=== PATIENT | female | born 1995 | race Caucasian/White ===

== ENCOUNTER 2016-12-25 19:45 | Emergency (ER) | payer OTHER ==
[~2016-12-25] VITALS: Ht 167.6 cm; Wt 124.0 kg
[~2016-12-25 19:45] MED LIST: BACTDS PO; CEPH-443 PO; HYDR-906 PO
[2016-12-25 20:35] VITALS: Ht 167.6 cm; Wt 124.0 kg
--- NOTE | 2016-12-25 22:13 | ERA ---
ER Documentation Chief Complaint Date/Time DATE: 12/25/16 TIME: 22:13 Chief Complaint upper abd pain x 2 days HPI The patient is a 21-year-old female, presenting to the ER because of epigastric abdominal pain intermittently for the last 2 days, worse today after she lives heavy object, 07/01. She has similar symptoms prior to cholecystectomy. She denies fever, chills, neck pain, chest pain, dyspnea, diaphoresis. She denies nausea, vomiting, dysuria, diarrhea, constipation. She does not smoke nor drink Past medical history: None Past surgical history: Cholecystectomy, appendectomy ROS All systems reviewed and are negative except as per history of present illness. Medications Home Meds Active Scripts Pantoprazole* (Protonix*) 40 Mg Tablet.dr, 40 MG PO DAILY, #20 TAB Prov:LISANDRO BOWLING MD 12/26/16 Hydrocodone/Acetaminophen ([place] 5-325 Tablet) 1 Each Tablet, 1 EACH PO Q6, #14 TAB Prov:ED FRANCIS DO 09/17/16 Cephalexin* (Keflex*) 500 Mg Capsule, 500 MG PO QID for 10 Days, CAP Prov:ED FRANCIS DO 09/17/16 Sulfamethoxazole-Trimethoprim* (Bactrim* DS) 800-160 Mg Tab, 1 TAB PO BID for 10 Days, TAB Prov:ED FRANCIS DO 09/17/16 Allergies Allergies: Coded Allergies: aspirin (Verified Allergy, Unknown, 12/25/16) PMhx/Soc Hx Alcohol Use: No Hx Substance Use: No Hx Tobacco Use: No Physical Exam Vitals Vital Signs Date Time Temp Pulse Resp B/P Pulse Ox O2 Delivery O2 Flow Rate FiO2 12/25/16 20:35 97.7 74 20 129/74 97 Physical Exam Const: No acute distress. Head: Atraumatic. Eyes: Normal Conjunctiva. ENT: Normal External Ears, Nose and Mouth. Neck: Full range of motion. No meningismus. Resp: Clear to auscultation bilaterally. Cardio: Regular rate and rhythm, no murmurs. Abd: Soft, non distended, normal bowel sounds, moderate epigastric tenderness. No right lower quadrant, right upper quadrant, rigidity, rebound, CVA tenderness Skin: No petechiae or rashes. Back: No midline or flank tenderness. Ext: No cyanosis, or edema. Neur: Awake and alert. No focal deficit Psych: Normal Mood and Affect. Result Diagram: 12/25/164 12/25/16 2304 Results 24 hrs Laboratory Tests Test 12/25/16 23:04 12/25/16 23:14 Alanine Aminotransferase (ALT/SGPT) 30IU/L Albumin 4.1g/dl Albumin/Globulin Ratio 1.24 Alkaline Phosphatase 95IU/L Anion Gap 16 Aspartate Amino Transf (AST/SGOT) 18IU/L Basophils # 0.110^3/ul Basophils % 0.3% Blood Morphology Comment Blood Urea Nitrogen 11mg/dl Calcium Level 9.4mg/dl Carbon Dioxide Level 31mmol/L Chloride Level 99mmol/L Creatinine 0.79mg/dl Direct Bilirubin 0.00mg/dl Eosinophils # 0.510^3/ul Eosinophils % 2.4% Globulin 3.30g/dl Glucose Level 106mg/dl Hematocrit 38.7% Hemoglobin 12.3g/dl Indirect Bilirubin 0.0mg/dl Lipase 89U/L Lymphocytes # 2.210^3/ul Lymphocytes % 10.6% Mean Corpuscular Hemoglobin 24.4pg Mean Corpuscular Hemoglobin Concent 31.9g/dl Mean Corpuscular Volume 76.5fl Mean Platelet Volume 9.3fl Monocytes # 1.010^3/ul Monocytes % 4.6% Neutrophils # 17.410^3/ul Neutrophils % 82.1% Nucleated Red Blood Cells # 0.010^3/ul Nucleated Red Blood Cells % 0.0/100WBC Platelet Count 10949^3/UL Potassium Level 4.0mmol/L Red Blood Count 5.0610^6/ul Red Cell Distribution Width 16.3% Sodium Level 142mmol/L Total Bilirubin 0.0mg/dl Total Protein 7.4g/dl White Blood Count 21.210^3/ul Bedside Urine Blood Negative Bedside Urine Glucose (UA) Negative Bedside Urine Ketones (LAB) Negative Bedside Urine Leukocyte Esterase (L Negative Bedside Urine Nitrite (LAB) Negative Bedside Urine Protein (LAB) Negative Bedside Urine pH (LAB) 6.5 Current Medications Medications (Trade) Dose Ordered Sig/Emely Route PRN Reason Start Time Stop Time Status Last Admin Dose Admin Sodium Chloride (NS) 1,000 ml @ 1,000 mls/hr Q1H STAT IV 12/25/16 22:19 12/25/16 23:18 DC 12/25/16 23:23 Morphine Sulfate (morphine) 4 mg ONCE STAT IV 12/25/16 22:19 12/25/16 22:21 DC 12/25/16 23:22 Ondansetron HCl (Zofran Inj) 4 mg ONCE STAT IV 12/25/16 22:19 12/25/16 22:21 DC 12/25/16 23:22 Pantoprazole (Protonix Iv) 40 mg ONCE ONCE IV 12/25/16 22:30 12/25/16 22:31 DC 12/25/16 23:22 Morphine Sulfate (morphine) 2 mg ONCE ONCE IV 12/26/16 00:30 12/26/16 00:31 DC 12/26/16 01:46 Procedures/[place] [id number] Radiology Main Line: [phone] DIAGNOSTIC IMAGING REPORT Patient: BERENICE GARCIA : 1995 Age: 21 Sex: F MR #: [id number] DOS: 12/26/16 0012 Ordering MD: LISANDRO BOWLING MD Location: [facility] Room/Bed: PROCEDURE: CT Abdomen and pelvis without contrast. CLINICAL INDICATION: Abdominal pain. TECHNIQUE: CT scan of the abdomen and pelvis was performed on a multi- detector high-resolution CT scanner. Contiguous axial images were obtained from the lung bases to the ischial tuberosities without intravenous contrast. Coronal and sagittal reformatted images were also obtained. Images were reviewed on the PACS workstation. One or more of the following dose reduction techniques were used: - Automated exposure control. - Adjustment of the mA and/or kV according to patient size. - Use of iterative reconstruction technique. Exam CTD/vol = 23.83 mGy. Total exam DLP = 1620.18 mGy-cm. COMPARISON: None. FINDINGS: Evaluation of the lung bases demonstrates minimal bibasilar atelectasis. Abdomen: The liver is normal in size. There is no focal mass or dilatation of the biliary tree. The patient is status post cholecystectomy. The spleen, pancreas and right adrenal gland are within normal limits. There is a nodule within the left adrenal gland measuring 2.0 x 1.9 cm with Hounsfield characteristics consistent with adenoma. Bilateral kidneys are normal in size with no contour deforming mass identified. There is no radiopaque renal or ureteral calculus identified. There is no hydronephrosis or hydroureter. There is no retroperitoneal adenopathy. The abdominal aorta is of normal caliber. There is no abnormal bowel wall thickening or distension. There is no bowel obstruction or free air. The appendix is not visualized and there are sutures at the cecum suggestive of prior appendectomy. There is no diverticulosis or diverticulitis. There is no ascites. Pelvis: The bladder is unremarkable. The uterus and adnexa are within normal limits. There is no significant pelvic adenopathy or free fluid. Evaluation of the osseous structures demonstrates no suspicious lytic or blastic lesion. IMPRESSION: No acute abnormality identified within the abdomen and pelvis. Left adrenal adenoma. Status post cholecystectomy. .Josué Mendes MD, MD Date Time Electronically viewed and signed by .Josué Mendes MD, MD on 12/26/2016 01:13 .T/ CC: LISANDRO BOWLING MD MEDICAL MAKING DECISION: The patient is a 21-year-old female, presenting to the ER because of epigastric abdominal pain intermittently for the last 2 days of unclear etiology. She was treated with morphine 4 mg IV and 2 mg IV for pain and Zofran 4 mg IV for nausea and Protonix 40 mg IV with good response. The differential diagnoses considered include but are not limited to esophagitis, cystitis, pancreatitis, hepatitis, gastritis, peptic ulcer disease, gastric ulcer, appendicitis, diverticulitis, cholangitis, choledocholithiasis, partial small bowel obstruction. she does have a leukocytosis of unclear significance. I do not suspect acute abdomen in the patient Departure Diagnosis: Primary Impression: Abdominal pain Additional Impressions: Adrenal adenoma Leukocytosis Condition: Good Comments She was discharged with Protonix and advised to return in 8 hours for reevaluation, sooner if any concern The patient's blood pressure was elevated (>120/80) but appears stable without evidence of hypertension emergency or urgency. The patient was counseled about the risks of hypertension and urged to pursue outpatient monitoring and therapy within a week with their primary care physician. LISANDRO BOWLING MD Dec 25, 2016 22:13
[2016-12-25] MEDS ORDERED: morphine 4 MG/ML VIAL IV STA (22:19)
[2016-12-25] MEDS ORDERED: SOD CHLORIDE 0.9% 1,000 ML IV STA (22:19)
[2016-12-25] MEDS ORDERED: ONDANSETRON 4 MG INJ IV STA (22:19)
[2016-12-25] MEDS ORDERED: PANTOPRAZOLE 40 MG INJ IV ONE (22:30)
[2016-12-25 23:12] LABS: URINE BLOOD (Dip) POC Negative (NEGATIVE)
[2016-12-25 23:27] LABS: BASOPHIL # 0.1 10^3/ul (0.0-0.1); BASOPHILS % 0.3 % (0.0-2.0); CONDITION 1; EOSINOPHILS # 0.5 10^3/ul (0.0-0.5); EOSINOPHILS % 2.4 % (0.0-7.0); HEMATOCRIT 38.7 % (37.0-47.0); HEMOGLOBIN 12.3 g/dl (12.0-16.0); LH ANALYZER COMMENTS 1; LYMPHOCYTES # 2.2 10^3/ul (0.8-2.9); LYMPHOCYTES % 10.6 % (15.0-51.0); MEAN CORPUSCULAR HEMOGLOBIN 24.4 pg (29.0-33.0); MEAN CORPUSCULAR HGB CONC 31.9 g/dl (32.0-37.0); MEAN CORPUSCULAR VOLUME 76.5 fl (82.0-101.0); MEAN PLATELET VOLUME 9.3 fl (7.4-10.4); MONOCYTES % 4.6 % (0.0-11.0); NEUTROPHIL # 17.4 10^3/ul (1.6-7.5); NEUTROPHILS % 82.1 % (39.0-77.0); PLATELET COUNT 335 10^3/UL (140-440); RED BLOOD COUNT 5.06 10^6/ul (4.20-5.40); RED CELL DISTRIBUTION WIDTH 16.3 % (11.5-14.5); UNCORRECTED WBC 21.2 10^3/ul (4.8-10.8); WHITE BLOOD COUNT 21.2 10^3/ul (4.8-10.8)
[2016-12-25 23:34] LABS: ALBUMIN 4.1 g/dl (3.3-4.9)
[2016-12-25 23:37] LABS: ALBUMIN/GLOBULIN RATIO 1.24; CREATININE 0.79 mg/dl (0.44-1.00); TOTAL PROTEIN 7.4 g/dl (6.1-8.1)
[2016-12-25 23:38] LABS: CALCIUM 9.4 mg/dl (8.4-10.2)
[2016-12-26] MEDS ORDERED: morphine 2 MG INJ IV ONE (00:30)
--- NOTE | 2016-12-26 01:13 | RADRPT ---
PROCEDURE: CT Abdomen and pelvis without contrast. CLINICAL INDICATION: Abdominal pain. TECHNIQUE: CT scan of the abdomen and pelvis was performed on a multi-detector high-resolution CT scanner. Contiguous axial images were obtained from the lung bases to the ischial tuberosities wit hout intravenous contrast. Coronal and sagittal reformatted images were also obtained. Images were reviewed on the PACS workstation. One or more of the following dose reduction techniques were used: - Automated exposure control. - Adjustment of the mA and/or kV according to patient size. - Use of iterative reconstruction technique. Exam CTD/vol = 23.83 mGy. Total exam DLP = 1620.18 mGy-cm. COMPARISON: None. FINDINGS: Evaluation of the lung bases demonstrates minimal bibasilar atelectasis. Abdomen: The liver is normal in size. There is no focal mass or dilatation of the biliary tree. T he patient is status post cholecystectomy. The spleen, pancreas and right adrenal gland are within normal limits. There is a nodule within the left adrenal gland measuring 2.0 x 1.9 cm with Hounsfiel d characteristics consistent with adenoma. Bilateral kidneys are normal in size with no contour defo rming mass identified. There is no radiopaque renal or ureteral calculus identified. There is no h ydronephrosis or hydroureter. There is no retroperitoneal adenopathy. The abdominal aorta is of no rmal caliber. There is no abnormal bowel wall thickening or distension. There is no bowel obstruction or free air . The appendix is not visualized and there are sutures at the cecum suggestive of prior appendectomy . There is no diverticulosis or diverticulitis. There is no ascites. Pelvis: The bladder is unremarkable. The uterus and adnexa are within normal limits. There is no significant pelvic adenopathy or free fluid. Evaluation of the osseous structures demonstrates no suspicious lytic or blastic lesion. IMPRESSION: No acute abnormality identified within the abdomen and pelvis. Left adrenal adenoma. Status post cholecystectomy. .Josué Mendes MD, MD Date Time Electronically viewed and signed by .Josué Mendes MD, MD on 12/26/2016 01:13 .T/
[2016-12-26] MEDS ORDERED: PANT40TA3 PO ×2 (02:03→13:02)
[2016-12-26 02:29] VITALS: BP 117/61; PULSE 71; RESP 18; TEMP 99.7
[2016-12-26] MEDS ORDERED: HYDR-906 PO (13:02)
== END 2016-12-26 02:30 | disposition home or self-care (01) ==
LOC: FTE 19:45
DX: R10.13 Epigastric pain (principal); D35.02 Benign neoplasm of left adrenal gland; D72.829 Elevated white blood cell count, unspecified
CPT/HCPCS: 36415; 74176; 80053; 81003; 83690; 85025; 96374; 96375; 96376; C9113; J2270; J2405; J7030; Z7502

== ENCOUNTER 2016-12-26 09:45 | Emergency (ER) | payer OTHER ==
[~2016-12-26] VITALS: Ht 162.6 cm; Wt 100.0 kg
[~2016-12-26 09:45] MED LIST changes: +PANT40TA3 PO
[2016-12-26 09:51] VITALS: Ht 162.6 cm; Wt 100.0 kg
[2016-12-26] MEDS ORDERED: SOD CHLORIDE 0.9% 1,000 ML IV STA (11:11)
[2016-12-26] MEDS ORDERED: morphine 4 MG/ML VIAL IV STA (11:11)
[2016-12-26] MEDS ORDERED: ONDANSETRON 4 MG INJ IV STA (11:11)
[2016-12-26] MEDS ORDERED: PANTOPRAZOLE 40 MG INJ IV ONE (11:30)
[2016-12-26 12:07] LABS: ADD UMIC NO; URINE BILIRUBIN (Dip) NEGATIVE (NEGATIVE); URINE BLOOD (Dip) NEGATIVE (NEGATIVE); URINE COLOR LT. YELLOW (YELLOW); URINE GLUCOSE (Dip) NEGATIVE (NEGATIVE); URINE KETONES (Dip) NEGATIVE (NEGATIVE); URINE LEUKOCYTE ESTERASE (Dip) NEGATIVE (NEGATIVE); URINE NITRITE (Dip) NEGATIVE (NEGATIVE); URINE TOTAL PROTEIN (Dip) NEGATIVE (NEGATIVE); URINE UROBILINOGEN (Dip) 0.2 E.U./dL (0.1-1.0)
[2016-12-26 12:20] LABS: POTASSIUM 4.1 mmol/L (3.5-5.1)
[2016-12-26 12:22] LABS: ALBUMIN/GLOBULIN RATIO 1.21; BILIRUBIN,INDIRECT 0.2 mg/dl (0-1.1); BILIRUBIN,TOTAL 0.2 mg/dl (0.2-1.3); CREATININE 0.61 mg/dl (0.44-1.00); TOTAL PROTEIN 7.3 g/dl (6.1-8.1)
--- NOTE | 2016-12-26 12:39 | ERD ---
ER Documentation Chief Complaint Date/Time DATE: 12/26/16 TIME: 12:39 Chief Complaint pt bib self with c/ o ap, seen here yesterday told to come back for recheck HPI This is a 21-year-old female presenting to the emergency room with a past medical history of cholecystectomy one year ago complaining of constant 8 out of 10 epigastric pain for the past 3 days, patient states that she has always had epigastric pain that has been evaluated by her doctor in this past year since her cholecystectomy. Patient denies any cough, nausea, vomiting, diarrhea , fever, urinary symptoms. Patient was seen here yesterday and was given prescription for home and instructed to return in 8 hours, patient states that she was unable to picker/puller the prescription. Patient states that when her gallbladder was removed last year they also did an appendectomy. ROS All systems reviewed and are negative except as per history of present illness. Medications Home Meds Active Scripts Pantoprazole* (Protonix*) 40 Mg Tablet., 40 MG PO DAILY, #20 TAB Prov:VALENTE GUILLEN PA-C 12/26/16 Hydrocodone/Acetaminophen ([place] 5-325 Tablet) 1 Each Tablet, 1 TAB PO Q6H Y for PAIN, #20 TAB Prov:VALENTE GUILLEN PA-C 12/26/16 Pantoprazole* (Protonix*) 40 Mg Tablet., 40 MG PO DAILY, #20 TAB Prov:LISANDRO BOWLING MD 12/26/16 Hydrocodone/Acetaminophen ([place] 5-325 Tablet) 1 Each Tablet, 1 EACH PO Q6, #14 TAB Prov:ED FRANCIS DO 09/17/16 Cephalexin* (Keflex*) 500 Mg Capsule, 500 MG PO QID for 10 Days, CAP Prov:ED FRANCIS DO 09/17/16 Sulfamethoxazole-Trimethoprim* (Bactrim* DS) 800-160 Mg Tab, 1 TAB PO BID for 10 Days, TAB Prov:ED FRANCIS DO 09/17/16 Allergies Allergies: Coded Allergies: aspirin (Verified Allergy, Unknown, 12/25/16) PMhx/Soc History of Surgery: Yes (Gall bladder removal and appendecitis) Anesthesia Reaction: No Hx Neurological Disorder: No Hx Respiratory Disorders: No Hx Cardiac Disorders: No Hx Psychiatric Problems: No Hx Miscellaneous Medical Probl: No Hx Alcohol Use: No Hx Substance Use: No Hx Tobacco Use: No Smoking Status: Never smoker Physical Exam Vitals Vital Signs Date Time Temp Pulse Resp B/P Pulse Ox O2 Delivery O2 Flow Rate FiO2 12/26/16 09:51 98.3 73 18 121/60 98 Physical Exam GENERAL: well-developed/well-nourished, in no apparent distress, non-toxic appearing Morbidly obese HENT: NC/AT, moist mucous membranes EYES: Conjunctiva normal NECK: Supple, no lymphadenopathy PULM: CTA bilaterally, no rales, rhonchi, or wheezing heard CV: Normal S1S2, RRR, good capillary refill GI: Soft, non-distended, tender to palpation epigastric region Normal bowel sounds, no masses or organomegaly felt on exam No gross peritonitis, no bruits Negative Rovsing, negative Piper, negative McBurney's point, Negative CVAT BACK: No masses EXT: No clubbing, cyanosis, or edema NEURO: Alert and Orientated SKIN: Intact, normal turgor PSYCH: Normal mood and mentation Result Diagram: 12/26/16 1140 12/26/16 1140 Results 24 hrs Laboratory Tests Test 12/26/16 11:40 Alanine Aminotransferase (ALT/SGPT) 33IU/L Albumin 4.0g/dl Albumin/Globulin Ratio 1.21 Alkaline Phosphatase 91IU/L Anion Gap 17 Aspartate Amino Transf (AST/SGOT) 18IU/L Basophils # 0.110^3/ul Basophils % 0.0% Blood Urea Nitrogen 10mg/dl Calcium Level 9.0mg/dl Carbon Dioxide Level 27mmol/L Chloride Level 103mmol/L Creatinine 0.61mg/dl Direct Bilirubin 0.00mg/dl Eosinophils # 0.510^3/ul Eosinophils % 2.4% Globulin 3.30g/dl Glucose Level 101mg/dl Hematocrit 40.0% Hemoglobin 12.3g/dl Indirect Bilirubin 0.2mg/dl Lipase 64U/L Lymphocytes # 2.010^3/ul Lymphocytes % 9.0% Mean Corpuscular Hemoglobin 24.2pg Mean Corpuscular Hemoglobin Concent 30.8g/dl Mean Corpuscular Volume 78.7fl Mean Platelet Volume 11.2fl Monocytes # 1.110^3/ul Monocytes % 5.1% Neutrophils # 17.710^3/ul Neutrophils % 81.8% Nucleated Red Blood Cells # 0.010^3/ul Nucleated Red Blood Cells % 0.0/100WBC Platelet Count 29029^3/UL Potassium Level 4.1mmol/L Red Blood Count 5.0810^6/ul Red Cell Distribution Width 15.9% Sodium Level 143mmol/L Total Bilirubin 0.2mg/dl Total Protein 7.3g/dl Urine Bilirubin NEGATIVE Urine Clarity CLEAR Urine Color LT. YELLOW Urine Glucose NEGATIVE% Urine Hemoglobin NEGATIVE Urine Ketones NEGATIVE Urine Leukocyte Esterase NEGATIVE Urine Nitrite NEGATIVE Urine Specific [place] 1.015 Urine Total Protein NEGATIVE Urine Urobilinogen 0.2 E.U./dL Urine pH 6.0 White Blood Count 21.710^3/ul Current Medications Medications (Trade) Dose Ordered Sig/Emely Route PRN Reason Start Time Stop Time Status Last Admin Dose Admin Sodium Chloride (NS) 1,000 ml @ 1,000 mls/hr Q1H STAT IV 12/26/16 11:11 12/26/16 12:10 DC 12/26/16 11:36 Morphine Sulfate (morphine) 4 mg ONCE STAT IV 12/26/16 11:11 12/26/16 11:13 DC 12/26/16 11:42 Ondansetron HCl (Zofran Inj) 4 mg ONCE STAT IV 12/26/16 11:11 12/26/16 11:13 DC 12/26/16 11:36 Pantoprazole (Protonix Iv) 40 mg ONCE ONCE IV 12/26/16 11:30 12/26/16 11:31 DC 12/26/16 11:36 Procedures/MDM This is a 21-year-old female presenting to the emergency room with a past medical history of cholecystectomy and appy one year ago complaining of constant 8 out of 10 epigastric pain for the past 3 days, patient states that she has always had epigastric pain that has been evaluated by her doctor in this past year since her cholecystectomy. Patient presents today stating that she was instructed to return in 8 hours for abdominal pain. I reviewed patient' s chart, s patient had a complete evaluation yesterday. CT of the abdomen and pelvis without contrast was done and unremarkable for any acute conditions. It did state that she had a left adrenal adenoma, patient's going to follow up with her primary care physician regarding that. Patient's lab work yesterday showed an elevated white count of 21.2, her white count today was 21.7. I discussed this case with my supervising physician who has also evaluated the patient. Patient was given a liter fluids, morphine, Zofran and Protonix. She states that she feels a lot better. My supervising physician and I have discussed this case and that she is suitable to follow-up with her primary care physician tomorrow. Patient did not seem to have any acute abdominall and acute cardia pulmonary conditions. Patient stable for discharge with precautions to return to the ER for any worsening signs or symptoms. She understands and agrees with this plan Departure Diagnosis: Primary Impression: Epigastric abdominal pain Condition: Stable VALENTE GUILLEN PA-C Dec 26, 2016 12:39
[2016-12-26 12:47] LABS: BASOPHIL # 0.1 10^3/ul (0.0-0.1); EOSINOPHILS # 0.5 10^3/ul (0.0-0.5); EOSINOPHILS % 2.4 % (0.0-7.0); HEMOGLOBIN 12.3 g/dl (12.0-16.0); MEAN CORPUSCULAR HEMOGLOBIN 24.2 pg (29.0-33.0); MEAN CORPUSCULAR HGB CONC 30.8 g/dl (32.0-37.0); MEAN CORPUSCULAR VOLUME 78.7 fl (82.0-101.0); MEAN PLATELET VOLUME 11.2 fl (7.4-10.4); MONOCYTE # 1.1 10^3/ul (0.3-0.9); MONOCYTES % 5.1 % (0.0-11.0); NEUTROPHIL # 17.7 10^3/ul (1.6-7.5); NEUTROPHILS % 81.8 % (39.0-77.0); PLATELET COUNT 331 10^3/UL (140-440); RED BLOOD COUNT 5.08 10^6/ul (4.20-5.40); RED CELL DISTRIBUTION WIDTH 15.9 % (11.5-14.5); UNCORRECTED WBC 21.7 10^3/ul (4.8-10.8); WHITE BLOOD COUNT 21.7 10^3/ul (4.8-10.8)
[2016-12-26] MEDS ORDERED: HYDR-906 PO (13:02)
[2016-12-26] MEDS ORDERED: PANT40TA3 PO (13:02)
[2016-12-26 13:24] VITALS: BP 102/55; PULSE 60; RESP 19; TEMP 98.1
== END 2016-12-26 13:26 | disposition home or self-care (01) ==
LOC: FTE 09:45
DX: R10.13 Epigastric pain (principal)
CPT/HCPCS: 36415; 80053; 81003; 83690; 84703; 85025; 96374; 96375; C9113; J2270; J2405; J7030; Z7502

== ENCOUNTER 2017-09-06 18:47 | Emergency (ER) | payer OTHER ==
[~2017-09-06] VITALS: Ht 160 cm; Wt 121.0 kg
[2017-09-06 18:59] VITALS: Ht 160 cm; Wt 121.0 kg
[2017-09-06] MEDS ORDERED: SOD CHLORIDE 0.9% 1,000 ML IV STA (21:19)
[2017-09-06] MEDS ORDERED: KETOROLAC 30 MG INJ IV STA (21:19)
--- NOTE | 2017-09-06 21:19 | ERD ---
ER Documentation Chief Complaint Date/Time DATE: 09/06/17 TIME: 21:16 Chief Complaint rlq and lower abd pain since sat headache since fri with n/v HPI 22-year-old female presents to emergency department for evaluation of upper and lower abdominal pain,LMP 08/24/17 -08/30/17, denies dysuria or vaginal DC. pt has second c/o of NASH frontal described as stabbing, pt reports nausea and vomiting, pt reports blurry vision that started yesterday. ROS All systems reviewed and are negative except as per history of present illness. Medications Home Meds Active Scripts Pantoprazole* (Protonix*) 40 Mg Tablet., 40 MG PO DAILY, #20 TAB Prov:VALENTE GUILLEN-Gladys 12/26/16 Hydrocodone/Acetaminophen ([place] 5-325 Tablet) 1 Each Tablet, 1 TAB PO Q6H Y for PAIN, #20 TAB Prov:VALENTE GUILLEN-Gladys 12/26/16 Pantoprazole* (Protonix*) 40 Mg Tablet., 40 MG PO DAILY, #20 TAB Prov:LISANDRO BOWLING MD 12/26/16 Hydrocodone/Acetaminophen ([place] 5-325 Tablet) 1 Each Tablet, 1 EACH PO Q6, #14 TAB Prov:ED FRANCIS DO 09/17/16 Cephalexin* (Keflex*) 500 Mg Capsule, 500 MG PO QID for 10 Days, CAP Prov:ED FRANCIS DO 09/17/16 Sulfamethoxazole-Trimethoprim* (Bactrim* DS) 800-160 Mg Tab, 1 TAB PO BID for 10 Days, TAB Prov:ED FRANCIS DO 09/17/16 Allergies Allergies: Coded Allergies: aspirin (Verified Allergy, Unknown, 09/06/17) PMhx/Soc Medical and Surgical Hx: pt denies Medical Hx History of Surgery: Yes (chole. lara) Anesthesia Reaction: No Hx Neurological Disorder: No Hx Respiratory Disorders: No Hx Cardiac Disorders: No Hx Psychiatric Problems: No Hx Miscellaneous Medical Probl: No Hx Alcohol Use: No Hx Substance Use: Yes (shane) Hx Tobacco Use: No Smoking Status: Never smoker Physical Exam Vitals Vital Signs Date Time Temp Pulse Resp B/P Pulse Ox O2 Delivery O2 Flow Rate FiO2 09/06/17 18:59 98.7 75 18 144/85 100 Physical Exam Const: Well-nourished well-hydrated obese 22-year-old female in no acute distress Head: Atraumatic Eyes: Normal Conjunctiva PERRLA, EOMI ENT: Lateral tympanic membranes translucent, auditory canals are clear nasal mucosa moist, edematous, pharynx pink, uvula midline without shift rises and falls with pronation, tongue midline moist. Neck: Full range of motion..~ No meningismus. No cervical chain nodes Resp: Respirations even and unlabored clear to auscultation bilaterally, no rales wheezes or rhonchi Cardio: S1-S2, no S3-S4 regular rate and rhythm, no murmurs Abd: Soft, upper and lower quadrant tenderness, no CVA tenderness Skin: Back: Ext: Neur: Neuro: M/S: Alert and oriented Face: EOMI, face and pharynx with normal sensation and function Motor: Normal strength throughout Sensation: Normal sensation throughout Speech: Normal Cerebel: Normal coordination Normal gait Normal finger to nose Psych: Normal Mood and Affect Result Diagram: 09/06/17215409/[id number]/172154 Results 24 hrs Laboratory Tests Test 09/06/17 21:35 09/06/17 21:55 Urine Color STRAW Urine Clarity CLEAR Urine pH 6.0 Urine Specific Center 1.006 Urine Ketones NEGATIVEmg/dL Urine Nitrite NEGATIVEmg/dL Urine Bilirubin NEGATIVEmg/dL Urine Urobilinogen NEGATIVEmg/dL Urine Leukocyte Esterase 1+Kiesha/ul Urine Microscopic RBC 1/HPF Urine Microscopic WBC 4/HPF Urine Squamous Epithelial Cells FEW/HPF Urine Bacteria FEW/HPF Urine Hemoglobin NEGATIVEmg/dL Urine Glucose NEGATIVEmg/dL Urine Total Protein NEGATIVEmg/dl White Blood Count 21.210^3/ul Red Blood Count 4.9110^6/ul Hemoglobin 12.7g/dl Hematocrit 40.2% Mean Corpuscular Volume 81.9fl Mean Corpuscular Hemoglobin 25.9pg Mean Corpuscular Hemoglobin Concent 31.6g/dl Red Cell Distribution Width 15.1% Platelet Count 41395^3/UL Mean Platelet Volume 11.0fl Neutrophils % 87.8% Lymphocytes % 6.2% Monocytes % 4.2% Eosinophils % 0.1% Basophils % 0.3% Nucleated Red Blood Cells % 0.0/100WBC Neutrophils # 18.610^3/ul Lymphocytes # 1.310^3/ul Monocytes # 0.910^3/ul Eosinophils # 0.010^3/ul Basophils # 0.110^3/ul Nucleated Red Blood Cells # 0.010^3/ul Sodium Level 141mmol/L Potassium Level 3.9mmol/L Chloride Level 107mmol/L Carbon Dioxide Level 25mmol/L Anion Gap 13 Blood Urea Nitrogen 9mg/dl Creatinine 0.64mg/dl Glucose Level 130mg/dl Calcium Level 8.8mg/dl Total Bilirubin 0.2mg/dl Direct Bilirubin 0.00mg/dl Indirect Bilirubin 0.2mg/dl Aspartate Amino Transf (AST/SGOT) 33IU/L Alanine Aminotransferase (ALT/SGPT) 64IU/L Alkaline Phosphatase 82IU/L Total Protein 6.7g/dl Albumin 3.7g/dl Globulin 3.00g/dl Albumin/Globulin Ratio 1.23 Lipase 192U/L Current Medications Medications (Trade) Dose Ordered Sig/Emely Route PRN Reason Start Time Stop Time Status Last Admin Dose Admin Sodium Chloride (NS) 1,000 ml @ 1,000 mls/hr Q1H STAT IV 09/06/17 21:19 09/06/17 22:18 DC 09/06/17 21:34 Ketorolac Tromethamine (Toradol) 30 mg ONCE STAT IV 09/06/17 21:19 09/06/17 21:25 DC 09/06/17 21:36 Diphenhydramine HCl (Benadryl) 25 mg ONCE ONCE IV 09/06/17 21:30 09/06/17 21:31 DC 09/06/17 21:35 Metoclopramide HCl (Reglan) 5 mg ONCE ONCE IV 09/06/17 21:30 09/06/17 21:31 DC 09/06/17 21:35 Famotidine (Pepcid Iv) 20 mg ONCE ONCE IV 09/06/17 21:30 09/06/17 21:31 DC 09/06/17 21:35 Interpretation text CBC shows no evidence of hemorrhage , leukocytosis 21.2 Chemistry shows no evidence of significant electrolyte abnormalities or renal insufficiency Liver function tests shows no evidence of acute biliary or hepatic dysfunction Urinalysis positive for leukocytosis, negative for nitrates and hematuria findings suggestive of urinary tract infections Procedures/MDM PROCEDURE: Abdominal ultrasound, limited. CLINICAL INDICATION: Abdominal pain. TECHNIQUE: Multiple real-time images were acquired of the patient's right upper abdomen utilizing a high resolution transducer. COMPARISON: None FINDINGS: The liver demonstrates normal echogenicity and size measuring 17.0 cm. There is no focal mass or intrahepatic biliary ductal dilatation. The portal vein is patent. The patient is status post cholecystectomy. The common bile duct measures 3.1 mm in maximal dimension. The visualized portions of the pancreas are unremarkable. No free fluid is identified. The right kidney is normal size and echogenicity measuring 10.8 cm. There is no focal renal mass or echogenic calculus identified. There is no obstructive uropathy. IMPRESSION: Status post cholecystectomy. Otherwise unremarkable right upper abdominal ultrasound. .Josué Mendes MD, MD Date Time Electronically viewed and signed by .Josué Mendes MD, MD on 09/06/2017 22:44 This 22-year-old female presents to emergency department with 2 separate complaints, first complaint is abdominal pain in right upper quadrant, epigastric and left upper quadrant, patient also reports pain in her low pelvis. No CVA tenderness. Patient also has a headache, patient reports she is used ibuprofen for relief of symptoms with little effectiveness. Patient has used ibuprofen in the past, reports no photosensitivity reports blurred vision, and a stabbing headache with vomiting. Patient does not remember when the headaches started. States that this is not the worst headache in her life. Emergency room course includes history and physical exam, headache treatment with normal saline hydration, IV Toradol, Reglan, Benadryl, and Pepcid. Diagnostic testing includes a right upper quadrant ultrasound positive for cholecystectomy, otherwise normal exam this was not reported during interview process. WBC showed leukocytosis at 2100, urinalysis positive for leukocytes, plan to treat patient with Macrobid 1 tab p.o. twice daily 7 days, instructed to follow-up with primary care physician for repeat evaluation after antibiotic course is complete. Return to emergency department if symptoms fail to improve after 24-48 hours. Increase fluids, increase rest. To address headache symptoms. Patient reports headache has subsided with current treatment, patient will be discharged home with 800 mg ibuprofen instructed to follow-up with primary care physician for full headache evaluation, return to emergency department for worsening of symptoms. [place] headache, vision change. Patient is stable with no new complaints during ER course, clinically there is no current evidence to suggest meningitis, sepsis, acute abdomen, pyelonephritis , subarachnoid bleed, intracranial mass or any other emergent condition appearing to require further evaluation or hospitalization. I feel the patient is stable for discharge at this time. I have discussed results, examination findings, the treatment plan with the patient and family present prior to discharge. Indications for emergent reevaluation, side effects of medication were also discussed. All questions were answered. Patient verbalizes understanding and agrees with plan of care. Departure Diagnosis: Primary Impression: Abdominal pain Abdominal location: generalized Qualified Code: R10.84 - Generalized abdominal pain Additional Impression: Head ache Headache type: unspecified Headache chronicity pattern: acute headache Intractability: not intractable Qualified Code: R51 - Acute nonintractable headache, unspecified headache type Condition: Good Patient Instructions: Abdominal Pain, Self-Care for Headaches Referrals: [facility] Additional Instructions: Thank you for for coming to [facility] for your care today. Please ask your nurse or provider if you have questions about your care today and do not leave until all your questions have been answered. Please use any medications given as directed and follow-up with your doctor (or the doctor you were referred to) in the next 2-3 days. If you do not have a primary care doctor you may [place] [facility] You may also use motrin and tylenol as needed for fever and/or pain unless instructed otherwise by your provider or nurse. Indications for more urgent follow-up have been discussed, but you may return to the Emergency Department at ANY time for any worrisome or worsening symptoms. If you have abdominal pain, please know that no test or exam you received is perfect and you should follow up within 8 hours for continued pain. If you had any imaging studies today, such as an X-Ray or CT Scan, these studies will be reviewed later by a radiologist. You will be called if there are important findings that were not identified today, so make sure the contact information you provided at registration is correct. If you received any narcotic pain control medicine today, such as Vicodin, Morphine or Dilaudid, your coordination and judgment may be affected for a number of hours. Please do not drive or operate heavy machinery, and you may want someone to assist you at home. If you were given a prescription for narcotic medication, be aware that it is very addictive- use sparingly and only if necessary. FILEMON BREWER Sep 06, 2017 21:19
[2017-09-06] MEDS ORDERED: FAMOTIDINE 20 MG INJ IV ONE (21:30)
[2017-09-06] MEDS ORDERED: METOCLOPRAMIDE 10 MG INJ IV ONE (21:30)
[2017-09-06] MEDS ORDERED: DIPHENHYDRAMINE 50 MG INJ IV ONE (21:30)
[2017-09-06 22:30] LABS: BASOPHIL # 0.1 10^3/ul (0.0-0.1); BASOPHILS % 0.3 % (0.0-2.0); EOSINOPHILS % 0.1 % (0.0-7.0); HEMATOCRIT 40.2 % (37.0-47.0); HEMOGLOBIN 12.7 g/dl (12.0-16.0); LYMPHOCYTES # 1.3 10^3/ul (0.8-2.9); LYMPHOCYTES % 6.2 % (15.0-51.0); MEAN CORPUSCULAR HEMOGLOBIN 25.9 pg (29.0-33.0); MEAN CORPUSCULAR HGB CONC 31.6 g/dl (32.0-37.0); MEAN CORPUSCULAR VOLUME 81.9 fl (82.0-101.0); MONOCYTE # 0.9 10^3/ul (0.3-0.9); MONOCYTES % 4.2 % (0.0-11.0); NEUTROPHIL # 18.6 10^3/ul (1.6-7.5); NEUTROPHILS % 87.8 % (39.0-77.0); PLATELET COUNT 318 10^3/UL (140-415); RED BLOOD COUNT 4.91 10^6/ul (4.20-5.40); RED CELL DISTRIBUTION WIDTH 15.1 % (11.5-14.5); WHITE BLOOD COUNT 21.2 10^3/ul (4.8-10.8)
[2017-09-06 22:35] LABS: ADD UMIC YES; UR ASCORBIC ACID NEGATIVE (NEGATIVE); UR BACTERIA FEW /HPF (NONE SEEN); UR BILIRUBIN (Dip) NEGATIVE (NEGATIVE); UR BLOOD (Dip) NEGATIVE (NEGATIVE); UR CLARITY CLEAR (CLEAR); UR COLOR STRAW (YELLOW); UR GLUCOSE (Dip) NEGATIVE (NEGATIVE); UR KETONES (Dip) NEGATIVE (NEGATIVE); UR LEUKOCYTE ESTERASE (Dip) 1+ Leu/ul (NEGATIVE); UR NITRITE (Dip) NEGATIVE (NEGATIVE); UR RBC 1 /HPF (0-5); UR SPECIFIC GRAVITY (Dip) 1.006 (1.003-1.030); UR SQUAMOUS EPITHELIAL CELL FEW /HPF (FEW); UR TOTAL PROTEIN (Dip) NEGATIVE (NEGATIVE); UR UROBILINOGEN (Dip) NEGATIVE (NEGATIVE)
[2017-09-06 22:41] LABS: ALBUMIN 3.7 g/dl (3.3-4.9); ALBUMIN/GLOBULIN RATIO 1.23; BILIRUBIN,INDIRECT 0.2 mg/dl (0-1.1); BILIRUBIN,TOTAL 0.2 mg/dl (0.2-1.3); CALCIUM 8.8 mg/dl (8.4-10.2); CREATININE 0.64 mg/dl (0.44-1.00); POTASSIUM 3.9 mmol/L (3.5-5.1); TOTAL PROTEIN 6.7 g/dl (6.1-8.1)
--- NOTE | 2017-09-06 22:44 | RADRPT ---
PROCEDURE: Abdominal ultrasound, limited. CLINICAL INDICATION: Abdominal pain. TECHNIQUE: Multiple real-time images were acquired of the patient's right upper abdomen utilizing a high resolution transducer. COMPARISON: None FINDINGS: The liver demonstrates normal echogenicity and size measuring 17.0 cm. There is no focal mass or in trahepatic biliary ductal dilatation. The portal vein is patent. The patient is status post cholec ystectomy. The common bile duct measures 3.1 mm in maximal dimension. The visualized portions of t he pancreas are unremarkable. No free fluid is identified. The right kidney is normal size and echogenicity measuring 10.8 cm. There is no focal renal mass or echogenic calculus identified. There is no obstructive uropathy. IMPRESSION: Status post cholecystectomy. Otherwise unremarkable right upper abdominal ultrasound. .Josué Mendes MD, Date Time Electronically viewed and signed by .Josué Mendes MD, on 09/06/2017 22:44 .T/
[2017-09-06] MEDS ORDERED: NITR-58 PO (23:24)
[2017-09-06] MEDS ORDERED: IBUP800T25 PO (23:25)
[2017-09-06 23:28] VITALS: BP 124/75; PULSE 66; RESP 18; TEMP 98.6
== END 2017-09-06 23:41 | disposition home or self-care (01) ==
LOC: FTE 18:47
DX: R10.84 Generalized abdominal pain (principal); R51 Headache
CPT/HCPCS: 36415; 76705; 80053; 81001; 83690; 85025; 96374; 96375; J1200; J1885; J2765; J7030; Z7502; Z7610